=== PATIENT | female | born 1980 | race Caucasian/White ===

== ENCOUNTER 2020-04-26 20:25 | Emergency (ER) | payer BC, OTHER ==
[~2020-04-26] VITALS: Ht 157.5 cm; Wt 113.4 kg
[2020-04-27] MEDS ORDERED: DOK100 M1 PO (00:39)
[2020-04-27] MEDS ORDERED: MIRALAX119 GM PO (00:39)
[2020-04-27 00:48] VITALS: BP 140/99
== END 2020-04-27 00:49 | disposition home or self-care (01) ==
LOC: ER 20:25
DX: K59.00 Constipation, unspecified (principal)